=== PATIENT | female | born 1965 | race Caucasian/White ===

== ENCOUNTER → 2017-02-11 | Outpatient (CLI) | payer BC ==
[~2017-02-11] MED LIST: CHILDREN'S VITA1 CTB PO; EFFEXOR XR37.5 MG/CA PO; KLONOPIN 0.5MG0.5 MG PO; MULTIPLE VITAMI1 CAP PO; NORCO 325 MG-7.1 TAB PO; SEE COMMENTS; TOPROL XL100 MG PO; lortab PO
== END ==
LOC: MC.RAD 14:23
DX: Z12.31 Encounter for screening mammogram for malignant neoplasm of breast (principal); Z85.3 Personal history of malignant neoplasm of breast

== ENCOUNTER → 2018-02-12 | Outpatient (CLI) | payer BC | LOC: MC.RAD 14:03 | DX: Z12.31 Encounter for screening mammogram for malignant neoplasm of breast (principal); Z85.3 Personal history of malignant neoplasm of breast; Z90.11 Acquired absence of right breast and nipple ==

== ENCOUNTER → 2019-02-13 | Outpatient (CLI) | payer BC | LOC: MC.RAD 10:45 | DX: Z12.31 Encounter for screening mammogram for malignant neoplasm of breast (principal); C50.111 Malignant neoplasm of central portion of right female breast; Z90.11 Acquired absence of right breast and nipple ==

== ENCOUNTER → 2019-05-22 | Outpatient (CLI) | payer BC | LOC: COL.CARD 07:23 | DX: R00.2 Palpitations (principal) ==

== ENCOUNTER → 2020-04-12 | Outpatient (CLI) | payer BC | LOC: MC.RAD 02-16 09:30 | DX: Z12.31 Encounter for screening mammogram for malignant neoplasm of breast (principal); C50.111 Malignant neoplasm of central portion of right female breast; Z90.11 Acquired absence of right breast and nipple ==